=== PATIENT | male | born 1935 | race Caucasian/White ===

== ENCOUNTER 2017-09-18 09:18 | Outpatient (CLI) | payer MEDICARE ==
[2017-09-18 10:16] LABS: Anion Gap 9 mmol/L (10-20); Calc. Creatinine Clearance 0 mL/min (70-130); Calcium 9.6 mg/dL (7.8-10.44); Carbon Dioxide 32 mmol/L (23-31); Chloride 103 mmol/L (98-107); Estimated GFR-MDRD 69; Glucose 100 mg/dL (83-110); Potassium 3.9 mmol/L (3.5-5.1); Sodium 140 mmol/L (136-145)
[2017-09-18 11:40] LABS: BUN (Urea Nitrogen) 11 mg/dL (8.4-25.7)
--- NOTE | 2017-09-18 12:43 | CT ---
CTA CHEST WITH AND WITHOUT CONTRAST: HISTORY: Coronary mapping. COMPARISON: None. FINDINGS: There appears to be some chronic scar in the right lung apex. Moderate paraseptal emphysema. Thicke ethan along the right minor fissure. There is a nodule in the left lung base measuring just under 6 m m. Multiple median sternotomy wires are present. There is severe atherosclerotic disease of the [place] coronary arteries. Right main coronary artery originates from the right coronary cusp and the right coronary artery originates from the left coronary cusp. Bypass graft is present feeding the right co ronary artery. Bypass graft is also present extending into the left anterior descending in the left ventricle. No thrombus is seen within the left atrium, left ventricle, right atrium, or right ventricle. Left a trial appendage is without thrombus. The left atrial appendage has an area of nonenhancement within the anterior margin there is present an area of thrombus, although it is not very hypodense and may r eflect just a lack of filling. The aorta is nonaneurysmal. Moderate atherosclerotic plaque of the aorta. Pulmonary trunk is not di lated. IMPRESSION: 1. Coronary arterial anatomy as above. 2. Area of nonenhancement of the anterior margin of the left atrial appendage may reflect non-fillin g from contrast versus less likely a thrombus. 3. Pulmonary nodule in the left lung base measuring just under 6 mm. In a high-risk patient, CT in 6 months recommended. POS: [facility]
== END 2017-09-18 09:19 | disposition home or self-care (01) ==
LOC: CT 09:18
PROVIDERS: ATTEND Internal Medicine Cardiovascular Disease
DX: I48.1 Persistent atrial fibrillation (principal); R91.1 Solitary pulmonary nodule
CPT/HCPCS: 36415; 71275; 80048

== ENCOUNTER 2017-11-12 09:25 | Outpatient (CLI) | payer MEDICARE ==
--- NOTE | 2017-11-12 21:32 | EKG ---
Test Reason : Blood Pressure : / mmHG Vent. Rate : 049 BPM Atrial Rate : 050 BPM P-R Int : 000 ms QRS Dur : 106 ms QT Int : 448 ms P-R-T Axes : 000 090 078 degrees QTc Int : 404 ms Atrial fibrillation with slow ventricular response with premature ventricular or aberrantly conducted complexes Rightward axis Incomplete right bundle branch block Minimal voltage criteria for LVH, may be normal variant Anterior infarct , age undetermined Abnormal ECG When compared with ECG of 06-AUG-2015 12:31, Anterior infarct is now Present ST no longer depressed in Anterior leads QT has shortened Confirmed by Judie SIMON ([id number]) on 11/12/2017 9:31:43 PM Referred By: KASH Confirmed By:Judie SIMON
== END 2017-11-12 09:26 | disposition home or self-care (01) ==
LOC: LABBT 09:25
PROVIDERS: ATTEND Internal Medicine Cardiovascular Disease
DX: Z01.818 Encounter for other preprocedural examination (principal); I48.1 Persistent atrial fibrillation; I45.10 Unspecified right bundle-branch block; R93.8 Abnormal findings on diagnostic imaging of other specified body structures; I21.9 Acute myocardial infarction, unspecified
CPT/HCPCS: 93005; 93010

== ENCOUNTER → 2017-12-14 | Day surgery (SDC) | payer MEDICARE ==
[2017-12-13 08:39] VITALS: BMI 24.0
[~2017-12-14] MED LIST: PROPOFOL 20 ML ONE; PROPOFOL 200 MG/20 ML VIAL ONE
--- NOTE | 2017-12-14 14:05 | EKG ---
Test Reason : PREOP Blood Pressure : / mmHG Vent. Rate : 059 BPM Atrial Rate : 074 BPM P-R Int : 000 ms QRS Dur : 096 ms QT Int : 438 ms P-R-T Axes : 000 072 048 degrees QTc Int : 433 ms Atrial fibrillation with slow ventricular response T wave abnormality, consider anterior ischemia Abnormal ECG Confirmed by ANA HEWITT ([id number]) on 12/14/2017 2:05:21 PM Referred By: KASH Confirmed By:ANA HEWITT
--- NOTE | 2017-12-14 15:16 | ECHO ---
TRANSESOPHAGEAL ECHOCARDIOGRAM: DATE OF PROCEDURE: 12/14/17 INDICATION: This is an 82-year-old gentleman with persistent atrial fibrillation and Watchman device. DESCRIPTION OF PROCEDURE: The patient was taken to the PACU. The patient was sedated by anesthesiology. A transesophageal probe was placed in the distal esophagus and stomach. Echocardiographic images were obtained. The transesophageal probe was removed. PROCEDURE FINDINGS: 1. Normal left ventricular systolic function. 2. Biatrial enlargement. 3. Moderate mitral regurgitation. 4. Mild tricuspid regurgitation. 5. Aortic valve leaflets are mildly thickened with reduced leaflet excursion. 6. Watchman device was noted with a 0.3 cm leak noted. 7. Atherosclerotic debris in the descending aorta. IMPRESSION: 0.3 cm leak noted around the Watchman device. .
== END ==
LOC: CCL 11-19 05:54
PROVIDERS: ATTEND Internal Medicine Cardiovascular Disease
PROC: B246ZZ4 Ultrasonography of Right and Left Heart, Transesophageal (ICD-10-PCS; principal; 2017-12-14)
DX: I48.1 Persistent atrial fibrillation (principal); I08.1 Rheumatic disorders of both mitral and tricuspid valves; I11.0 Hypertensive heart disease with heart failure; I50.32 Chronic diastolic (congestive) heart failure; E78.5 Hyperlipidemia, unspecified; I25.10 Atherosclerotic heart disease of native coronary artery without angina pectoris; Z95.818 Presence of other cardiac implants and grafts
CPT/HCPCS: 93005; 93010; 93312; J2704

== ENCOUNTER → 2018-04-29 | Day surgery (SDC) | payer MEDICARE ==
[2018-04-26 17:24] VITALS: BMI 22.9
[~2018-04-29] MED LIST changes: +Glycopyrrolate 0.2 MG/ML 5 ML SYRINGE ONE; -PROPOFOL 200 MG/20 ML VIAL ONE
--- NOTE | 2018-04-29 17:52 | ECHO ---
TRANSESOPHAGEAL ECHOCARDIOGRAM: DATE OF PROCEDURE: 04/29/18 INDICATION: 82-year-old gentleman with permanent atrial fibrillation and a Watchman device. DESCRIPTION OF PROCEDURE: The patient was taken to the PACU. The patient was sedated by anesthesiology. A transesophageal probe was placed in the distal esophagus and stomach. Echocardiographic images were obtained. The transesophageal probe was removed. FINDINGS: 1. Normal left ventricular systolic function. 2. Biatrial enlargement. 3. Aortic valve leaflets are thickened with reduced leaflet excursion. 4. Mild to moderate aortic stenosis. 5. Mild mitral regurgitation. 6. Moderate tricuspid regurgitation. 7. The Watchman device was well positioned with a 0.2 mm leak noted around the device. 8. Atherosclerotic debris in the descending aorta. IMPRESSION: Watchman device with a 0.2 mm leak noted around the device.
--- NOTE | 2018-04-30 17:40 | EKG ---
Test Reason : PREOP Blood Pressure : / mmHG Vent. Rate : 060 BPM Atrial Rate : 141 BPM P-R Int : 000 ms QRS Dur : 094 ms QT Int : 468 ms P-R-T Axes : 000 070 073 degrees QTc Int : 468 ms Atrial fibrillation Minimal voltage criteria for LVH, may be normal variant Prolonged QT Abnormal ECG When compared with ECG of 14-DEC-2017 07:37, No significant change was found Confirmed by DR. Natalie MALCOLM ([id number]) on 04/30/2018 5:40:05 PM Referred By: KASH Confirmed By:DR. Natalie MALCOLM
== END ==
LOC: CCL 05:56
PROVIDERS: ATTEND Internal Medicine Cardiovascular Disease
PROC: B24BZZ4 Ultrasonography of Heart with Aorta, Transesophageal (ICD-10-PCS; principal; 2018-04-29)
DX: I48.1 Persistent atrial fibrillation (principal); I35.0 Nonrheumatic aortic (valve) stenosis; I34.0 Nonrheumatic mitral (valve) insufficiency; I36.1 Nonrheumatic tricuspid (valve) insufficiency; Z79.02 Long term (current) use of antithrombotics/antiplatelets; Z79.82 Long term (current) use of aspirin; Z79.899 Other long term (current) drug therapy; Z95.818 Presence of other cardiac implants and grafts
CPT/HCPCS: 93005; 93010; 93312; J2704

== ENCOUNTER 2018-08-29 06:02 | Day surgery (SDC) | payer MEDICARE ==
[2018-08-28 12:10] VITALS: BMI 22.9
[2018-08-29 06:40] LABS: #Eosinphils 0.1 thou/uL (0.0-0.7); #Lymphocytes 1.5 thou/uL (1.20-3.40); #Monocytes 0.5 thou/uL (0.11-0.59); #Neutrophils 4.8 thou/uL (1.40-6.50); %Basophils 0.2 % (0.0-1.0); %Lymphocytes 22.5 % (21.0-51.0); %Monocytes 6.5 % (0.0-10.0); %Neutrophils 69.9 % (42.0-75.0); Hemoglobin 13.3 g/dL (14.0-18.0); Mean Corpuscular HGB CONC 31.7 g/dL (32.0-36.0); Mean Corpuscular Volume 97.8 fL (78.0-98.0); Mean Platelet Volume 8.1 fL (7.4-10.4); Platelet Count 197 thou/uL (130-400); RBC Distribution Width 11.2 % (11.5-14.5); Red Blood Cell (RBC) Count 4.28 mill/uL (4.70-6.10); White Blood Cell (WBC) Count 6.9 thou/uL (4.8-10.8)
[2018-08-29 06:44] LABS: INR-International Normal Ratio 1.1; PTT 34.3 SEC (22.9-36.1); Prothrombin Time 14.1 SEC (12.0-14.7)
[2018-08-29 07:19] LABS: Anion Gap 10 mmol/L (10-20); BUN (Urea Nitrogen) 9 mg/dL (8.4-25.7); Calc. Creatinine Clearance 68 mL/min (70-130); Calcium 9.5 mg/dL (7.8-10.44); Carbon Dioxide 29 mmol/L (23-31); Chloride 103 mmol/L (98-107); Estimated GFR-MDRD 85; Glucose 98 mg/dL (83-110); Potassium 3.8 mmol/L (3.5-5.1); Sodium 138 mmol/L (136-145)
[2018-08-29] MEDS ORDERED: Lidocaine 1% PF 5 ML VIAL ONE ×3 (07:20→14:49)
[2018-08-29] MEDS ORDERED: PROPOFOL 40 ML ONE (07:20)
[2018-08-29] MEDS ORDERED: PROPOFOL 200 MG/20 ML VIAL ONE (14:49)
--- NOTE | 2018-08-29 17:03 | EKG ---
Test Reason : PREOP Blood Pressure : / mmHG Vent. Rate : 046 BPM Atrial Rate : 326 BPM P-R Int : 000 ms QRS Dur : 100 ms QT Int : 498 ms P-R-T Axes : 000 084 077 degrees QTc Int : 435 ms Atrial fibrillation with slow ventricular response Voltage criteria for left ventricular hypertrophy T wave abnormality, consider anterior ischemia or digitalis effect Abnormal ECG When compared with ECG of 29-APR-2018 06:56, No significant change was found Confirmed by DR. Carmen BARILLAS ([id number]) on 08/29/2018 5:03:03 PM Referred By: KASH Confirmed By:DR. Carmen BARILLAS
--- NOTE | 2018-08-29 23:44 | ECHO ---
83-year-old gentleman with permanent atrial fibrillation and Watchman device. DESCRIPTION OF PROCEDURE: The patient was taken to the PACU. The patient was sedated by anesthesiology. A transesophageal pro be was placed into the distal esophagus and stomach. Echocardiographic images were obtained. The tr ansesophageal probe was removed. FINDINGS: 1. Normal left ventricular systolic function. 2. Normal mitral and aortic valves. 3. Mild mitral regurgitation. 4. Mild tricuspid regurgitation. 5. The Watchman device is well positioned in the left atrial appendage with no significant leak note d. Large amount of clot was noted behind the device. 6. Atherosclerotic debris in the descending aorta. IMPRESSION: Watchman device well positioned with no significant leak and a large amount of clot noted behind the device.
== END 2018-08-29 09:21 | disposition home or self-care (01) ==
LOC: CCL 06:02
PROVIDERS: ATTEND Internal Medicine Cardiovascular Disease
PROC: B24BZZ4 Ultrasonography of Heart with Aorta, Transesophageal (ICD-10-PCS; principal; 2018-08-29)
DX: I48.1 Persistent atrial fibrillation (principal); I70.0 Atherosclerosis of aorta; I08.1 Rheumatic disorders of both mitral and tricuspid valves; I10 Essential (primary) hypertension; I25.10 Atherosclerotic heart disease of native coronary artery without angina pectoris; Z95.1 Presence of aortocoronary bypass graft; E78.5 Hyperlipidemia, unspecified; J44.9 Chronic obstructive pulmonary disease, unspecified; Z87.891 Personal history of nicotine dependence; Z79.02 Long term (current) use of antithrombotics/antiplatelets; Z79.82 Long term (current) use of aspirin; Z79.899 Other long term (current) drug therapy; Z95.818 Presence of other cardiac implants and grafts
CPT/HCPCS: 80048; 85025; 85610; 85730; 93005; 93010; 93312; J2001; J2704

== ENCOUNTER 2018-11-20 01:11 | Outpatient (CLI) | payer MEDICARE ==
--- NOTE | 2018-11-20 13:48 | RAD ---
F2 views of the chest: 11/20/2018 COMPARISON: 08/05/2015 HISTORY: Preoperative patient FINDINGS: A closure device with numerous additional associated metallic coils overlie the cardiac chuy houette in the region of the AP window, likely associated with closure of left atrial appendage. Midl ine sternotomy wires are present. There is atherosclerotic calcification of the aortic arch. There is no pneumothorax or pleural fluid and no focal consolidation or alveolar edema. IMPRESSION: Postoperative changes as detailed above. No radiographic evidence of acute cardiopulmonar y disease.
[2018-11-20 14:57] LABS: #Eosinphils 0.1 thou/uL (0.0-0.7); #Lymphocytes 2.2 thou/uL (1.20-3.40); #Monocytes 0.5 thou/uL (0.11-0.59); #Neutrophils 4.3 thou/uL (1.40-6.50); %Basophils 0.5 % (0.0-1.0); %Eosinophils 0.8 % (0.0-10.0); %Lymphocytes 30.9 % (21.0-51.0); %Monocytes 6.4 % (0.0-10.0); %Neutrophils 61.4 % (42.0-75.0); Hemoglobin 13.7 g/dL (14.0-18.0); Mean Corpuscular HGB CONC 32.7 g/dL (32.0-36.0); Mean Corpuscular Hemoglobin 31.8 pg (27.0-31.0); Mean Corpuscular Volume 97.3 fL (78.0-98.0); Mean Platelet Volume 7.8 fL (7.4-10.4); Platelet Count 196 thou/uL (130-400); RBC Distribution Width 11.5 % (11.5-14.5)
[2018-11-20 15:21] LABS: Anion Gap 12 mmol/L (10-20); BUN (Urea Nitrogen) 8 mg/dL (8.4-25.7); Calc. Creatinine Clearance 0 mL/min (70-130); Calcium 9.8 mg/dL (7.8-10.44); Carbon Dioxide 32 mmol/L (23-31); Chloride 102 mmol/L (98-107); Estimated GFR-MDRD 74; Glucose 88 mg/dL (83-110); Sodium 142 mmol/L (136-145)
--- NOTE | 2018-11-20 16:54 | EKG ---
Test Reason : Blood Pressure : / mmHG Vent. Rate : 044 BPM Atrial Rate : 050 BPM P-R Int : 000 ms QRS Dur : 102 ms QT Int : 492 ms P-R-T Axes : 000 087 077 degrees QTc Int : 420 ms Atrial fibrillation with slow ventricular response Incomplete right bundle branch block Anterior infarct , age undetermined Abnormal ECG When compared with ECG of 29-AUG-2018 06:37, Anterior infarct is now Present Confirmed by ALEXANDER BLANCHARD, SMary ([id number]) on 11/20/2018 4:54:01 PM Referred By: ELIZABETH Confirmed By:DR. Eduardo MUNOZ MD
== END 2018-11-20 01:12 | disposition home or self-care (01) ==
LOC: LABBT 01:11
PROVIDERS: ATTEND Specialist
DX: Z01.818 Encounter for other preprocedural examination (principal); K40.90 Unilateral inguinal hernia, without obstruction or gangrene, not specified as recurrent
CPT/HCPCS: 71046; 80048; 85025; 93005; 93010

== ENCOUNTER 2018-11-21 06:57 | Day surgery (SDC) | payer MEDICARE ==
[2018-11-20 12:31] VITALS: BMI 22.9
[2018-11-21] MEDS ORDERED: Ketorolac Tromethamine 30 MG/ML VIAL ONE (07:51)
[2018-11-21] MEDS ORDERED: Bupivacaine 0.25% HCL 30 ML VIAL ONE (10:37)
[2018-11-21] MEDS ORDERED: Bupivacaine/Epinephrine 0.25% 30 ML VIAL ONE (10:38)
[2018-11-21] MEDS ORDERED: Midazolam HCl 2 mg/2 ml Vial ONE (10:40)
[2018-11-21] MEDS ORDERED: Fentanyl 100 MCG/2 ML VIAL ONE (10:40)
[2018-11-21] MEDS ORDERED: Ondansetron PF 4 MG/2 ML Vial ONE (12:16)
[2018-11-21] MEDS ORDERED: PROPOFOL 200 MG/20 ML VIAL ONE (12:16)
[2018-11-21] MEDS ORDERED: Lidocaine 1% PF 5 ML VIAL ONE (12:16)
[2018-11-21] MEDS ORDERED: Glycopyrrolate 0.2 MG/ML 5 ML SYRINGE ONE (12:16)
--- NOTE | 2018-11-22 12:48 | OP ---
DATE OF PROCEDURE: 11/21/2018 This doctor David Green is dictating operative report on Nigel chnace I arc this eight RY low CK date of operation is 11/21/2018. PREOPERATIVE DIAGNOSIS: Right inguinal hernia. POSTOPERATIVE DIAGNOSIS: Right inguinal hernia, indirect. OPERATION PERFORMED: Open repair of indirect right inguinal hernia with large PerFix mesh plug and patch. 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 ANESTHESIA: General with laryngeal mask airway. INDICATIONS: The patient is an 83-year-old white male. He presents with an easily visible right inguinal hernia, and he was taken to the operative room at this time for repair. He is previously undergone left inguinal hernia repair. DESCRIPTION OF OPERATION: Informed consent was obtained. The patient was taken to the operating room where general anesthesia obtained with the patient in supine position. Abdomen and groin were prepped with ChloraPrep and draped in sterile fashion. Local anesthesia was infiltrated using 0.25% Marcaine with epinephrine. Oblique right inguinal incision was created and dissection carried through skin and subcutaneous tissue. Dissection was carried down to the fascia, which was opened parallel to its fibers so as to open the external ring. Careful dissection was carried out to dissect and encircle the spermatic cord. There was no evidence of a direct hernia. The cord was dissected, identifying an obvious indirect hernia sac. At the time that it was identified, there was some incarcerated fatty tissue within this. I carefully dissected the sac from the surrounding structures within the cord. The sac was opened. I recognized it extended significantly further down in the cord toward the testicle. I therefore divided the sac at this level. I was able to reduce the fatty tissue back within the peritoneal cavity. The sac was ligated using a suture ligature of 2-0 Vicryl. I then secured the apex of a large mesh plug to the apex of the hernia sac. The hernia sac was dissected back to its opening at the internal ring and the preperitoneal fatty tissue. I then inverted the sac with the plug into the preperitoneal space. The plug was secured in place with 3 interrupted sutures of 2-0 Vicryl to surrounding muscular tissue. The patch was trimmed to appropriate size and placed within the floor of the inguinal canal. It was secured in place with several interrupted sutures of 2-0 Vicryl. The fascia was then closed with a running suture of 3-0 Vicryl and the remainder of the wound closed in layers using 3-0 and 4-0 Monocryl. Dermabond was placed externally. There were no complications. Additional local anesthetic was infiltrated during the course of closure. Blood loss had been essentially none. The patient was taken to recovery room in stable condition. Job ID: [id number]
== END 2018-11-21 14:02 | disposition home or self-care (01) ==
LOC: SDC 06:57
PROVIDERS: ATTEND Specialist
PROC: 0YU50JZ Supplement Right Inguinal Region with Synthetic Substitute, Open Approach (ICD-10-PCS; principal; 2018-11-21)
DX: K40.30 Unilateral inguinal hernia, with obstruction, without gangrene, not specified as recurrent (principal); I25.10 Atherosclerotic heart disease of native coronary artery without angina pectoris; E78.5 Hyperlipidemia, unspecified; I11.0 Hypertensive heart disease with heart failure; I50.32 Chronic diastolic (congestive) heart failure; I48.0 Paroxysmal atrial fibrillation; K21.9 Gastro-esophageal reflux disease without esophagitis; Z87.891 Personal history of nicotine dependence; Z79.899 Other long term (current) drug therapy; Z79.82 Long term (current) use of aspirin; Z98.890 Other specified postprocedural states; Z95.1 Presence of aortocoronary bypass graft
CPT/HCPCS: 49507; C1781; J0131; J1885; J2001; J2250; J2405; J2704; J3010; S0020

== ENCOUNTER 2019-07-23 13:14 | Outpatient (CLI) | payer MEDICARE ==
--- NOTE | 2019-07-23 16:45 | MRI ---
MRI LUMBAR SPINE WITHOUT CONTRAST: HISTORY: Spinal stenosis. FINDINGS: Vertebral body heights and marrow signal are maintained. There is focal fat versus hemangioma involvi ng the L2 vertebral body. The conus medullaris ends at the L1 level. The paraspinal musculature is un remarkable. Degenerative changes are manifested by disk desiccation throughout the thoracic spine with bulging di sks. There is disk space narrowing at the L5-S1 level. There are associated facet hypertrophic and li gamentum flavum hypertrophic changes. These result in mild bilateral neural foraminal stenosis at the L1-L2 level and moderately severe bilateral neural foraminal stenosis at the L5-S1 level (left great er than right). There is probable impingement of the exiting nerve roots bilaterally by the far later al disk bulging at the L3-L4 and the L4-L5 levels. There is severe central canal stenosis at the L2-L 3 and the L3-L4 levels and very severe central canal stenosis at the L4-L5 level. IMPRESSION: Lumbar spondylosis with multilevel stenotic changes as discussed above. POS: [facility]
== END 2019-07-23 13:15 | disposition home or self-care (01) ==
LOC: BICMRI 13:14
PROVIDERS: ATTEND Family Medicine
DX: M48.061 Spinal stenosis, lumbar region without neurogenic claudication (principal); M48.07 Spinal stenosis, lumbosacral region; M47.816 Spondylosis without myelopathy or radiculopathy, lumbar region
CPT/HCPCS: 72148

== ENCOUNTER 2021-03-09 13:24 | Emergency (ER) | payer MEDICARE ==
[2021-03-09] MEDS ORDERED: Lidocaine 1% (PF) 30 ML VIAL ONE (14:35)
[2021-03-09] MEDS ORDERED: Bacitracin 1 PK ONE (15:34)
== END 2021-03-09 15:40 | disposition home or self-care (01) ==
LOC: ERS 13:24
DX: S61.211A Laceration without foreign body of left index finger without damage to nail, initial encounter (principal); W45.8XXA Other foreign body or object entering through skin, initial encounter; I25.10 Atherosclerotic heart disease of native coronary artery without angina pectoris; N40.0 Benign prostatic hyperplasia without lower urinary tract symptoms; E78.5 Hyperlipidemia, unspecified; E78.00 Pure hypercholesterolemia, unspecified; I10 Essential (primary) hypertension; Z87.891 Personal history of nicotine dependence
CPT/HCPCS: 12002; J2001

== ENCOUNTER 2022-12-16 09:01 | Emergency (ER) | payer MEDICARE ==
[2022-12-16 09:41] LABS: #Eosinphils 0.1 thou/uL (0.0-0.7); #Lymphocytes 1.6 thou/uL (1.20-3.40); #Monocytes 0.4 thou/uL (0.11-0.59); #Neutrophils 4.4 thou/uL (1.40-6.50); %Basophils 0.2 % (0.0-1.0); %Eosinophils 1.6 % (0.0-10.0); %Monocytes 5.8 % (0.0-10.0); %Neutrophils 67.4 % (42.0-75.0); Mean Corpuscular HGB CONC 32.5 g/dL (32.0-36.0); Mean Corpuscular Hemoglobin 32.1 pg (27.0-31.0); Mean Corpuscular Volume 98.9 fl (78.0-98.0); Mean Platelet Volume 8.4 fL (7.4-10.4); Platelet Count 178 10x3/uL (130-400); RBC Distribution Width 11.2 % (11.5-14.5); Red Blood Cell (RBC) Count 4.05 mill/uL (4.70-6.10); White Blood Cell (WBC) Count 6.5 10x3/uL (4.8-10.8)
[2022-12-16 10:03] LABS: ALT (SGPT) 7 U/L (8-55); AST (SGOT) 15 U/L (5-34); Albumin 4.3 g/dL (3.4-4.8); Alkaline Phosphatase 61 U/L (40-110); Anion Gap 13 mmol/L (10-20); BUN (Urea Nitrogen) 11 mg/dL (8.4-25.7); Bilirubin, Total 0.8 mg/dL (0.2-1.2); Calc. Creatinine Clearance 0 mL/min (70-130); Calcium 9.6 mg/dL (7.8-10.44); Carbon Dioxide 27 mmol/L (23-31); Chloride 104 mmol/L (98-107); Estimated GFR 65; Globulin 2.9 g/dL (2.4-3.5); Glucose 133 mg/dL (83-110); Potassium 3.6 mmol/L (3.5-5.1); Protein, Total 7.2 g/dL (5.8-8.1); Sodium 140 mmol/L (136-145)
== END 2022-12-16 12:56 | disposition home or self-care (01) ==
LOC: ERS 09:01
DX: M79.89 Other specified soft tissue disorders (principal); M25.561 Pain in right knee; I25.10 Atherosclerotic heart disease of native coronary artery without angina pectoris; E78.00 Pure hypercholesterolemia, unspecified; I10 Essential (primary) hypertension; Z87.891 Personal history of nicotine dependence
CPT/HCPCS: 71045; 80053; 83880; 85025

== ENCOUNTER 2024-05-23 15:04 | Emergency (ER) | payer MEDICARE ==
[2024-05-23 16:12] LABS: #Basophils 0.04 10x3/uL (0.0-0.2); %Basophils 0.5 % (0.0-1.0); %Eosinophils 1.1 % (0.0-10.0); %Lymphocytes 24.1 % (21.0-51.0); %Monocytes 7.8 % (0.0-10.0); %Neutrophils 66.2 % (42.0-75.0); Hematocrit 39.9 % (42.0-52.0); Hemoglobin 12.7 g/dL (14.0-18.0); Mean Corpuscular HGB CONC 31.8 g/dL (32.0-36.0); Mean Corpuscular Hemoglobin 30.4 pg (27.0-31.0); Mean Corpuscular Volume 95.5 fL (78.0-98.0); Mean Platelet Volume 10.2 fL (7.4-10.4); Platelet Count 229 10x3/uL (130-400); RBC Distribution Width 13.2 % (11.5-14.5); Red Blood Cell (RBC) Count 4.18 mill/uL (4.70-6.10)
[2024-05-23 16:34] LABS: ALT (SGPT) 21 U/L (8-55); AST (SGOT) 24 U/L (5-34); Albumin 3.7 g/dL (3.4-4.8); Alkaline Phosphatase 83 U/L (40-110); Anion Gap 12 mmol/L (10-20); BUN (Urea Nitrogen) 17 mg/dL (8.4-25.7); Bilirubin, Total 0.7 mg/dL (0.2-1.2); Calc. Creatinine Clearance 0 mL/min (70-130); Calcium 9.5 mg/dL (7.8-10.44); Carbon Dioxide 25 mmol/L (23-31); Chloride 103 mmol/L (98-107); Estimated GFR 77; Globulin 3.6 g/dL (2.4-3.5); Glucose 91 mg/dL (83-110); Potassium 3.8 mmol/L (3.5-5.1); Protein, Total 7.3 g/dL (5.8-8.1); Sodium 136 mmol/L (136-145)
== END 2024-05-23 20:33 | disposition home or self-care (01) ==
LOC: ERS 15:04
DX: I82.621 Acute embolism and thrombosis of deep veins of right upper extremity (principal); I25.10 Atherosclerotic heart disease of native coronary artery without angina pectoris; I10 Essential (primary) hypertension; E78.00 Pure hypercholesterolemia, unspecified; Z87.891 Personal history of nicotine dependence; Z79.82 Long term (current) use of aspirin; Z79.899 Other long term (current) drug therapy
CPT/HCPCS: 36415; 80053; 85025

== ENCOUNTER 2024-06-17 08:51 | Outpatient (CLI) | payer MEDICARE ==
[2024-06-17] MEDS ORDERED: Iopamidol 370 76% 100 ML VIAL ONE (10:17)
== END 2024-06-17 08:52 | disposition home or self-care (01) ==
LOC: BICCT 08:51
PROVIDERS: ATTEND Family Medicine
DX: R59.1 Generalized enlarged lymph nodes (principal); R93.89 Abnormal findings on diagnostic imaging of other specified body structures; R91.8 Other nonspecific abnormal finding of lung field; J98.4 Other disorders of lung; J90 Pleural effusion, not elsewhere classified; I51.7 Cardiomegaly; N28.89 Other specified disorders of kidney and ureter; I70.90 Unspecified atherosclerosis; R91.1 Solitary pulmonary nodule
CPT/HCPCS: 71260; Q9967

== ENCOUNTER 2024-07-14 11:00 | Outpatient (CLI) | payer MEDICARE | END 2024-07-14 11:01 | disposition home or self-care (01) | LOC: PET 11:00 | PROVIDERS: ATTEND Internal Medicine | DX: C34.11 Malignant neoplasm of upper lobe, right bronchus or lung (principal); R59.0 Localized enlarged lymph nodes; E88.9 Metabolic disorder, unspecified | CPT/HCPCS: 78815; 80053; A9552 ==

== ENCOUNTER 2024-07-15 11:10 | Emergency (ER) | payer MEDICARE | END 2024-07-15 15:34 | disposition home or self-care (01) | LOC: ERS 11:10 | DX: S09.90XA Unspecified injury of head, initial encounter (principal); S50.811A Abrasion of right forearm, initial encounter; E78.00 Pure hypercholesterolemia, unspecified; I10 Essential (primary) hypertension; W01.198A Fall on same level from slipping, tripping and stumbling with subsequent striking against other object, initial encounter; Z87.891 Personal history of nicotine dependence; Z79.899 Other long term (current) drug therapy | CPT/HCPCS: 70450; 72125 ==

== ENCOUNTER 2024-07-30 09:58 | Outpatient (CLI) | payer MEDICARE ==
[2024-07-30] MEDS ORDERED: Magnevist 469MG/ML 20 ML VIAL ONE (15:18)
== END 2024-07-30 09:59 | disposition home or self-care (01) ==
LOC: MRI 09:58
PROVIDERS: ATTEND Internal Medicine
DX: C34.11 Malignant neoplasm of upper lobe, right bronchus or lung (principal); I67.89 Other cerebrovascular disease
CPT/HCPCS: 70553; 76376

== ENCOUNTER 2024-08-07 16:10 | Inpatient (IN) | payer OTHER ==
[2024-08-07] MEDS ORDERED: Morphine 4 MG/ML VIAL SLOW IVP PRN ×2 (16:28→16:30)
[2024-08-07] MEDS ORDERED: Lorazepam 2 MG/ML VIAL SLOW IVP PRN (16:35)
[2024-08-07] MEDS ORDERED: diphenhydrAMINE 25 MG CAP PO PRN (16:41)
[2024-08-07] MEDS ORDERED: diphenhydrAMINE 50 MG/ML VIAL IVP PRN (16:42)
[2024-08-07] MEDS ORDERED: Haloperidol Lactate 5 MG/ML VIAL SLOW IVP PRN ×2 (16:45→17:00)
[2024-08-07] MEDS ORDERED: Ondansetron PF 4 MG/2 ML Vial IVP PRN (16:47)
[2024-08-07] MEDS ORDERED: GLYCOPYRROLATE/PF 0.2 MG/ML VIAL SLOW IVP PRN (16:50)
[2024-08-07] MEDS ORDERED: Atropine Sulfate 1% Ophth Soln 5 ml Bottle SL PRN (16:52)
[2024-08-07] MEDS ORDERED: Bisacodyl 10 MG SUPP PR PRN (16:54)
[2024-08-07] MEDS ORDERED: Acetaminophen 325 MG TAB PO PRN (16:57)
[2024-08-07] MEDS ORDERED: Acetaminophen 650 MG Suppository PR PRN (16:58)
[2024-08-07] MEDS: Morphine 4 MG/ML VIAL SLOW IVP SCH (17:25)
[2024-08-07] MEDS: Scopolamine 1 mg/72 hour Patch TOP SCH (17:50)
[2024-08-07] MEDS: Lorazepam 2 MG/ML VIAL SLOW IVP SCH (17:51)
[2024-08-07] MEDS: Glycopyrrolate 0.4 MG/ 2 ML VIAL SLOW IVP SCH (21:02)
[2024-08-08 07:58] VITALS: BP 84/55; TEMP 97.4
== END 2024-08-08 18:35 | disposition expired | DRG 951 ==
LOC: T4-A 16:10
PROVIDERS: ADMIT Family Medicine; ATTEND Family Medicine
DX: Z51.5 Encounter for palliative care (principal); K56.7 Ileus, unspecified; N17.9 Acute kidney failure, unspecified; C85.92 Non-Hodgkin lymphoma, unspecified, intrathoracic lymph nodes; R91.8 Other nonspecific abnormal finding of lung field; I10 Essential (primary) hypertension; R63.1 Polydipsia; Z86.718 Personal history of other venous thrombosis and embolism; Z66 Do not resuscitate; Z85.118 Personal history of other malignant neoplasm of bronchus and lung
CPT/HCPCS: J2060; J2272